=== PATIENT | male | born 2000 | race Caucasian/White ===

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

== ENCOUNTER 2021-08-08 20:40 | Emergency (ER) | payer SELFPAY ==
[2021-08-08] MEDS ORDERED: Sodium Chloride 0.9% 10 ML Syringe FLUSH PRN (21:13)
--- NOTE | 2021-08-08 22:01 | EDM.PDOC ---
ED HPI GENERAL MEDICAL PROBLEM - General Chief Complaint: General Stated Complaint: shortness of breath, cough Time Seen by Provider: 08/08/21 21:13 Source of Information: Reports: Patient - History of Present Illness INITIAL COMMENTS - FREE TEXT/NARRATIVE: Best is a 21 y/o male who presents to the ER with a fever and shortness of breath that he developed abruptly about 0400 today. He called his mother to ask where his inhaler was because he could not take a deep breath and felt SOB. He has not really coughed much, but is starting to. He has a sore throat and feels very tired. Currently has nt received the COVID vaccine and reports having COVID a year ago with very mild sx. No RAMOS, neg N/V/D. Throat Pain Score (Numeric/FACES): 3 - Related Data Allergies Allergy/AdvReac Type Severity Reaction Status Date / Time No Known Allergies Allergy Verified 08/08/21 20:51 Home Meds: Home Meds Fexofenadine [Maria Elena] 60 mg PO DAILY 05/15/17 [History] Albuterol Sulfate [Albuterol Sulfate HFA] 8.5 gm INH Q2H #1 inhaler 08/08/21 [Rx] Albuterol/Ipratropium [DuoNeb 3.0-0.5 MG/3 ML] 3 ml INH Q4H PRN 08/08/21 [History] Amoxicillin 875 mg PO BID #14 tab 08/08/21 [Rx] Past Medical History HEENT History: Reports: Allergic Rhinitis Respiratory History: Reports: Asthma Other Respiratory History: collapsed lung right side Musculoskeletal History: Reports: Other (See Below) Other Musculoskeletal History: right pointer finger amputation - Past Surgical History HEENT Surgical History: Reports: Adenoidectomy, Tonsillectomy Social & Family History - Tobacco Use Tobacco Use Status *Q: Never Tobacco User Second Hand Smoke Exposure: No - Caffeine Use Caffeine Use: Reports: Soda - Recreational Drug Use Recreational Drug Use: No ED ROS GENERAL - Review of Systems Review Of Systems: See Below Constitutional: Reports: Fever, Chills, Malaise, Fatigue HEENT: Reports: Throat Pain Respiratory: Reports: Shortness of Breath, Cough Cardiovascular: Reports: No Symptoms Endocrine: Reports: No Symptoms GI/Abdominal: Reports: No Symptoms : Reports: No Symptoms Musculoskeletal: Reports: No Symptoms Skin: Reports: No Symptoms Neurological: Reports: No Symptoms Psychiatric: Reports: No Symptoms Hematologic/Lymphatic: Reports: No Symptoms Immunologic: Reports: No Symptoms ED EXAM, GENERAL - Physical Exam Exam: See Below General Appearance: Alert, WD/WN, No Apparent Distress (Yougn adult male, calm. Lying on bed in exam room.) Eye Exam: Bilateral Eye: PERRL Ears: Normal External Exam, Normal Canal, Hearing Grossly Normal Nose: Normal Inspection, Normal Mucosa, No Blood Throat/Mouth: Normal Inspection, Normal Lips, Normal Voice Head: Atraumatic, Normocephalic Neck: Normal Inspection, Supple Respiratory/Chest: Wheezing (Upper bases bilateral otherwise diminshed in the bases) Cardiovascular: Normal Peripheral Pulses, Regular Rate, Rhythm, No Murmur GI/Abdominal: Normal Bowel Sounds, Soft, Non-Tender (Male) Exam: Deferred Rectal (Males) Exam: Deferred Back Exam: Normal Inspection Extremities: Normal Inspection, Normal Range of Motion, No Pedal Edema, Normal Capillary Refill Neurological: Alert, Oriented, CN II-XII Intact, No Motor/Sensory Deficits Psychiatric: Normal Affect, Normal Mood Skin Exam: Warm, Dry, Intact, Normal Color Course - Vital Signs Text/Narrative:: 2112 Patient was seen by the CIRCUITS ENGINEER. Labs and XRay ordered. 2199 CXR reviewed and no acute finding noted. Patient advised to use his Albuterol inhaler due to wheezing. Labs pending. 2299 Labs reviewed. CBC neg, CMP neg, COVID negative, RST=negative, Throat Cx pending. Results are discussed with the patient and his mother. CIRCUITS ENGINEER advised treating asthma sx and monitoring for further development of sx prior to initiating abx therapy. Patient laying on bed with eyes closed and had no questions or comments for CIRCUITS ENGINEER. Vitals have been normal other than the fever. Resp rate normla and oxygen sats 98% on room air. Mother became upset and reported to CIRCUITS ENGINEER that patient had a collapsed lung and was airlifted to [place] and at that time was told he had an immune disorder and was to be placed on abx immediately upon getting ill. FAMILIA returned to the [facility] chart and noted most recent admission as noted per mother and the admission as for Asthma Exacerbation. At that time he was tx with steroid, bronchodialators, and inhaled steroids. Additionally [place] Chart was reviewed and not recent admission overs the lasy couple years were found for any asthma issues or any mention of an immune disorder. Further review of the [place] Chart back to 10/2012 noted a consult with Peds Allergy/Immunology and the patient was seen for Asthma and diagnosis list included "Specific Antibody Deficiency Syndrome". CIRCUITS ENGINEER found no mention of recommendations when patient becomes ill and no further recent follow ups either. CIRCUITS ENGINEER discussed review of findings from the chart history with patient and his mother. Still advised that with current clinic picture and stable vitals that Azithromycin is not indicated. Advise watchful waiting and treating sx. Will given 7 days Rx of Amoxicillin if congestion persists, may consider Sinusitis. Will also refill Albuterol. 3245 Patient asked that RSV and Influenza tests be done. 0035 RSV neg/Influenza neg Written instructions were given and patient left the ER in stable condition family. Last Recorded V/S: Last Vital Signs Temp 36.7 C 08/09/21 00:04 Pulse 100 08/09/21 00:04 Resp 20 08/09/21 00:04 BP 136/85 08/09/21 00:04 Pulse Ox 99 08/09/21 00:04 - Orders/Labs/Meds Orders: Active Orders 24 hr Category Date Time Status Chest 1V Frontal [CR] Stat Exams 08/08/21 21:14 Taken CULTURE BLOOD [BC] Stat Lab 08/08/21 21:40 Received CULTURE BLOOD [BC] Stat Lab 08/08/21 21:40 Received CULTURE STREP A CONFIRMATION [RM] Stat Lab 08/08/21 21:14 Results INFLUENZA A,B, H1N1 BY PCR [MREF] Stat Lab 08/08/21 23:57 Received RESPIRATORY SYNCYTIAL VIRUS AG [RM] Stat Lab 08/08/21 23:57 Received STREP SCRN A RAPID W CULT CONF [RM] Stat Lab 08/08/21 21:14 Results Sodium Chloride 0.9% [Saline Flush] Med 08/08/21 21:13 Active 10 ml FLUSH ASDIRECTED PRN Blood Culture x2 Reflex Set [OM.PC] Stat Oth 08/08/21 21:14 Ordered Isolation [COMM] Routine Oth 08/08/21 23:57 Active Isolation [COMM] Routine Oth 08/08/21 23:58 Active Saline Lock Insert [OM.PC] Stat Oth 08/08/21 21:14 Ordered Medication Orders Sodium Chloride (Sodium Chloride 0.9% 10 Ml Syringe) 10 ml FLUSH ASDIRECTED PRN PRN Reason: Keep Vein Open Labs: Laboratory Tests 08/08/21 08/08/21 08/08/21 Range/Units 21:40 21:40 21:40 WBC 4.5 (4.0-10.2) K/uL RBC 4.99 (4.33-5.41) M/uL Hgb 15.0 (13.1-16.8) g/dL Hct 42.9 (39.0-49.0) % MCV 86.0 (84.0-98.0) fL MCH 30.1 (28.2-33.3) pg MCHC 35.0 (31.7-36.0) g/dL RDW 13.1 (11.2-14.1) % Plt Count 159 D (150-350) K/uL Neut % (Auto) 58.4 (45.0-80.0) % Lymph % (Auto) 19.7 (10.0-50.0) % [place] % (Auto) 18.6 H (2.0-14.0) % Eos % (Auto) 3.1 (0.0-5.0) % Baso % (Auto) 0.2 (0.0-2.0) % Neut # (Auto) 2.61 (1.40-7.00) K/uL Lymph # (Auto) 0.88 (0.50-3.50) K/uL [place] # (Auto) 0.83 (0.00-1.00) K/uL Eos # (Auto) 0.14 (0.00-0.50) K/uL Baso # (Auto) 0.01 (0.00-0.20) K/uL Sodium 144 (136-145) mmol/L Potassium 3.6 (3.5-5.1) mmol/L Chloride 107 (98-107) mmol/L Carbon Dioxide 25.2 (21.0-32.0) mmol/L Anion Gap 11.8 (7-15) meq/L BUN 13 (7-18) mg/dL Creatinine 1.09 (0.51-1.17) mg/dL Est Cr Clr Drug Dosing 114.44 mL/min Estimated GFR (MDRD) > 60 mL/min Glucose 90 (70-99) mg/dL Lactic Acid (0.4-2.0) mmol/L Calcium 9.3 (8.5-10.1) mg/dL Total Bilirubin 0.5 (0.2-1.0) mg/dL AST 22 (15-37) U/L ALT 25 (12-78) U/L Alkaline Phosphatase 96 (46-116) IU/L C-Reactive Protein < 0.2 (<=0.9) mg/dL Total Protein 7.4 (6.4-8.2) g/dL Albumin 4.3 (3.4-5.0) g/dL SARS-CoV-2 RNA (FABIO) Negative (NEGATIVE) 08/08/21 Range/Units 21:40 WBC (4.0-10.2) K/uL RBC (4.33-5.41) M/uL Hgb (13.1-16.8) g/dL Hct (39.0-49.0) % MCV (84.0-98.0) fL MCH (28.2-33.3) pg MCHC (31.7-36.0) g/dL RDW (11.2-14.1) % Plt Count (150-350) K/uL Neut % (Auto) (45.0-80.0) % Lymph % (Auto) (10.0-50.0) % [place] % (Auto) (2.0-14.0) % Eos % (Auto) (0.0-5.0) % Baso % (Auto) (0.0-2.0) % Neut # (Auto) (1.40-7.00) K/uL Lymph # (Auto) (0.50-3.50) K/uL [place] # (Auto) (0.00-1.00) K/uL Eos # (Auto) (0.00-0.50) K/uL Baso # (Auto) (0.00-0.20) K/uL Sodium (136-145) mmol/L Potassium (3.5-5.1) mmol/L Chloride (98-107) mmol/L Carbon Dioxide (21.0-32.0) mmol/L Anion Gap (7-15) meq/L BUN (7-18) mg/dL Creatinine (0.51-1.17) mg/dL Est Cr Clr Drug Dosing mL/min Estimated GFR (MDRD) mL/min Glucose (70-99) mg/dL Lactic Acid 1.8 (0.4-2.0) mmol/L Calcium (8.5-10.1) mg/dL Total Bilirubin (0.2-1.0) mg/dL AST (15-37) U/L ALT (12-78) U/L Alkaline Phosphatase (46-116) IU/L C-Reactive Protein (<=0.9) mg/dL Total Protein (6.4-8.2) g/dL Albumin (3.4-5.0) g/dL SARS-CoV-2 RNA (FABIO) (NEGATIVE) Meds: Medications Generic Name Dose Route Start Last Admin Trade Name Freq PRN Reason Stop Dose Admin Sodium Chloride 10 ml 08/08/21 21:13 Sodium Chloride 0.9% 10 Ml Syringe FLUSH ASDIRECTED PRN Keep Vein Open Discontinued Medications Generic Name Dose Route Start Last Admin Trade Name Freq PRN Reason Stop Dose Admin Acetaminophen 650 mg 08/08/21 22:21 Acetaminophen 325 Mg Tab PO 08/08/21 22:22 NOW ONE - Radiology Interpretation Free Text/Narrative:: XR Chest 1V=no acute findings, see final report Departure - Departure Time of Disposition: 23:47 Disposition: Home, Self-Care 01 Condition: Good Clinical Impression: Fever Qualifiers: Fever type: unspecified Qualified Code(s): R50.9 - Fever, unspecified Asthma Qualifiers: Asthma severity: severe Asthma persistence: persistent Asthma complication ty pe: with acute exacerbation Qualified Code(s): J45.51 - Severe persistent asthma with (acute) exacerbation - Discharge Information Prescriptions: Albuterol Sulfate [Albuterol Sulfate HFA] 8.5 gm INH Q2H #1 inhaler Amoxicillin 875 mg PO BID #14 tab Instructions: Asthma, Adult, Fever, Adult Referrals: Cierra Basurto NP [Primary Care Provider] - Forms: ED Department Discharge Additional Instructions: -Continue Albuterol inhaler and also Maria Elena. -Treat fever with acetaminophen or ibuprofen as needed -Use any over the counter meds you find helpful. -Monitor for further symptoms and follow up with your PCP or return to the ER. -Your rapid strep test was negative, a throat culture is pending to confirm this result. If it is positive you will be notified. -If your symptoms are worse or you develop shortness of breath return to be seen. Sepsis Event Note (ED) - Evaluation Sepsis Screening Result: Possible Severe Sepsis Risk - Focused Exam Vital Signs: Vital Signs Temp Pulse Resp BP Pulse Ox 08/09/21 00:04 36.7 C 100 20 136/85 99 08/08/21 23:42 38.1 C 08/08/21 20:42 38.6 C H 99 20 133/64 98 - Problem List & Annotations (1) Asthma SNOMED Code(s): 107672620 Code(s): J45.909 - UNSPECIFIED ASTHMA, UNCOMPLICATED Status: Acute Priority: High Current Visit: Yes Onset Date: ~07/26/19 Annotation/Comment:: CXR negative. CBC, CMP, RST, and COVID all negative. Vitals stable. Maintains SpO2 98-99% on room air. Lungs occsaional wheeze noted, but no respiratory distress. Qualifiers: Asthma severity: severe Asthma persistence: persistent Asthma complication type: with acute exacerbation Qualified Code(s): J45.51 - Severe persistent asthma with (acute) exacerbation (2) Fever SNOMED Code(s): 225372034 Code(s): R50.9 - FEVER, UNSPECIFIED Status: Acute Current Visit: Yes Qualifiers: Fever type: unspecified Qualified Code(s): R50.9 - Fever, unspecified - Problem List Review Problem List Initiated/Reviewed/Updated: Yes - My Orders Last 24 Hours: My Active Orders 08/08/21 21:13 Sodium Chloride 0.9% [Saline Flush] 10 ml FLUSH ASDIRECTED PRN 08/08/21 21:14 Chest 1V Frontal [CR] Stat CULTURE STREP A CONFIRMATION [RM] Stat STREP SCRN A RAPID W CULT CONF [RM] Stat Blood Culture x2 Reflex Set [OM.PC] Stat Saline Lock Insert [OM.PC] Stat 08/08/21 21:40 CULTURE BLOOD [BC] Stat CULTURE BLOOD [BC] Stat 08/08/21 23:57 INFLUENZA A,B, H1N1 BY PCR [MREF] Stat RESPIRATORY SYNCYTIAL VIRUS AG [RM] Stat Isolation [COMM] Routine 08/08/21 23:58 Isolation [COMM] Routine - Assessment/Plan Last 24 Hours: My Active Orders 08/08/21 21:13 Sodium Chloride 0.9% [Saline Flush] 10 ml FLUSH ASDIRECTED PRN 08/08/21 21:14 Chest 1V Frontal [CR] Stat CULTURE STREP A CONFIRMATION [RM] Stat STREP SCRN A RAPID W CULT CONF [RM] Stat Blood Culture x2 Reflex Set [OM.PC] Stat Saline Lock Insert [OM.PC] Stat 08/08/21 21:40 CULTURE BLOOD [BC] Stat CULTURE BLOOD [BC] Stat 08/08/21 23:57 INFLUENZA A,B, H1N1 BY PCR [MREF] Stat RESPIRATORY SYNCYTIAL VIRUS AG [RM] Stat Isolation [COMM] Routine 08/08/21 23:58 Isolation [COMM] Routine Plan: See above
[2021-08-08 22:17] LABS: ANION GAP 11.8 meq/L (7-15); CHLORIDE,CL 107 mmol/L (98-107); SODIUM,NA 144 mmol/L (136-145)
[2021-08-08] MEDS ORDERED: Acetaminophen 325 MG Tab PO ONE (22:21)
[2021-08-09 00:05] VITALS: BP 136/85; PULSE 100
== END 2021-08-09 00:45 | disposition home or self-care (01) ==
LOC: LL.ED 20:40
DX: J45.51 Severe persistent asthma with (acute) exacerbation (principal); R50.9 Fever, unspecified; Z20.822 Contact with and (suspected) exposure to COVID-19
CPT/HCPCS: 36415; 71045; 80053; 83605; 85025; 86140; 87040; 87081; 87430; 87635; 87804; 87807; 99285; A9270; 99284; U0002